=== PATIENT | female | born 1955 | race Caucasian/White ===

== ENCOUNTER 2020-07-26 06:17 | Emergency (ER) | payer OTHER ==
[~2020-07-26] VITALS: Ht 172.7 cm; Wt 68.2 kg
[~2020-07-26 06:17] MED LIST: CLON-527 PO; PANT40TA39 PO; PER5325T PO; VAL5T PO; ZOF4T PO; [UNRECOGNIZED DRUG - CODE] PO
[2020-07-26 06:19] VITALS: BP_DIAS 84
[2020-07-26] MEDS ORDERED: LORazepam 0.5 MG tablet PO PRN (06:45)
--- NOTE | 2020-07-26 07:21 | NUR ---
ANUM [phone] WILL BE HER [facility] HOME
--- NOTE | 2020-07-26 07:46 | NUR ---
ANUM IS A FRIEND NOT HER [phone]
[2020-07-26 08:03] LABS: BASOPHILS % (AUTO) 0.5 % (0-1); EOSINOPHILS # (AUTO) 0.1 X10'3 (0-0.9); EOSINOPHILS % (AUTO) 1.8 % (0-6); HEMATOCRIT 40.9 % (35.0-45.0); HEMOGLOBIN 13.9 g/dl (12.0-16.0); LYMPHOCYTES # (AUTO) 2.1 X10'3 (1.1-4.8); LYMPHOCYTES % (AUTO) 35.9 % (21-51); MEAN CORPUSCULAR HEMOGLOBIN 29.9 PG (27.0-31.0); MEAN CORPUSCULAR HGB CONC 33.9 g/dL (33.0-36.5); MEAN CORPUSCULAR VOLUME 88.2 FL (78-98); MEAN PLATELET VOLUME 8.2 FL (7.4-10.4); MONOCYTES # (AUTO) 0.3 X10'3 (0-0.9); MONOCYTES % (AUTO) 5.9 % (2-12); NEUTROPHILS # (AUTO) 3.2 X10'3 (1.8-7.7); NEUTROPHILS % (AUTO) 55.9 % (42-75); PLATELET COUNT 140 X10'3 (140-440); RED BLOOD COUNT 4.64 X10'6 (4.20-5.60); RED CELL DISTRIBUTION WIDTH 14.1 % (11.5-14.5); WHITE BLOOD COUNT 5.7 X10'3 (4.5-11.0)
[2020-07-26 08:18] LABS: ALANINE AMINOTRANSFERASE 24 U/L (12-78); ALBUMIN 3.9 G/DL (3.4-5.0); ALBUMIN/GLOBULIN RATIO 1.2 (1.1-1.5); ALKALINE PHOSPHATASE 75 IU/L (46-116); ANION GAP 9 (8-16); ASPARTATE AMINO TRANSFERASE 16 U/L (10-37); BILIRUBIN,TOTAL 1.3 MG/DL (0.1-1.0); BLOOD UREA NITROGEN 26 MG/DL (7-18); BUN/CREATININE RATIO 42.6 (6.6-38.0); CHLORIDE 108 MMOL/L (99-107); CREATININE 0.61 MG/DL (0.40-0.90); GLUCOSE 95 MG/DL (70-104); POTASSIUM 3.7 MMOL/L (3.5-5.1); SODIUM 144 MMOL/L (135-145); TOTAL CARBON DIOXIDE 26.9 MMOL/L (24-32); TOTAL PROTEIN 7.1 G/DL (6.4-8.2); eGFR > 90 ML/MIN
[2020-07-26 08:44] LABS: CLARITY,URINE CLEAR (Clear); COLOR,URINE STRAW (Yellow); GLUCOSE, URINE NEGATIVE (Neg); KETONES,URINE NEGATIVE (Neg); LEUKOCYTE ESTERASE ,URINE NEGATIVE (Neg); NITRITES, URINE NEGATIVE (Neg); OCCULT BLOOD,URINE NEGATIVE (Neg); PROTEIN,URINE NEGATIVE (Neg); UROBILINOGEN,URINE 0.2 E.U/dL (0.2-1.0)
[2020-07-26 08:45] LABS: UA COLLECTION TYPE CLN CATCH MIDSTREAM
[2020-07-26 10:30] VITALS: BP_SYST 72
== END 2020-07-26 11:06 | disposition home or self-care (01) ==
LOC: ER 06:17
DX: J06.9 Acute upper respiratory infection, unspecified (principal); R50.9 Fever, unspecified; G24.3 Spasmodic torticollis; R11.0 Nausea; Z20.828 Contact with and (suspected) exposure to other viral communicable diseases; G89.29 Other chronic pain; F41.9 Anxiety disorder, unspecified; Z88.6 Allergy status to analgesic agent; Z88.8 Allergy status to other drugs, medicaments and biological substances; Z79.82 Long term (current) use of aspirin; Z79.899 Other long term (current) drug therapy
CPT/HCPCS: 36415; 71045; 80053; 81003; 85025; 87081; 87635; 87880; 99284

== ENCOUNTER 2025-06-01 04:54 | Emergency (ER) | payer BC, MEDICAID ==
[~2025-06-01] VITALS: Ht 172.7 cm; Wt 70.0 kg
[2025-06-01 04:54] VITALS: BP 142/83; O2SAT 100
[~2025-06-01 04:54] MED LIST changes: +ASPI-1071 PO; +ATOR40TA PO; +BRIM5DRO21 EACHEYE; -CLON-527 PO; +CLON0.252 PO; -PANT40TA39 PO; +PANT40TA54 PO; -PER5325T PO; -VAL5T PO; -[UNRECOGNIZED DRUG - CODE] PO
[2025-06-01 05:10] VITALS: RESP 12
--- NOTE | 2025-06-01 05:16 | Physician Documentation ---
History of Present Illness ~ Chief Complaint: Wound Stated Complaint: LEFT WRIST INFECTION Time Seen by MD: 05:15 Primary Medical Doctor: NO PMD, [facility] ZARATE [facility] Mode of Arrival: POV HPI Patient presents to the emergency room for evaluation of infection to her left wrist. She was admitted here recently and this is with the IV site was. She did see her primary care two days ago who prescribed her two different antibiotics one for which she has started yesterday in his taken two doses in additional one if that antibiotic fails. Patient is using hydrogen peroxide and Neosporin that has well as a Band-Aid in addition to the antibiotic. No fevers Tetanus within 5 years?: No Medication Reconciliation Allergies: Coded Allergies: acetaminophen (Verified Adverse Reaction, Intermediate, 09/16/11) hydrocodone bit (Verified Adverse Reaction, Intermediate, 09/16/11) Scheduled Aspirin (Ecotrin*), 1 TAB PO DAILY Atorvastatin Calcium* (Lipitor*), 1 TAB PO HS Brimonidine Tartrate/Timolol (Brimonidine-Timolol 0.2%-0.5%), 1 DROP EACHEYE BID, (Reported) Clonazepam (Clonazepam), 1 TAB PO Q6H, (Reported) Ondansetron ODT* (Zofran ODT*), 8 MG PO DAILY PRN, (Reported) Pantoprazole Sodium (Pantoprazole Sodium), 1 TAB PO DAILY Past Medical History Past Medical History: Chronic Pain, Chronic Back Pain, Anxiety Past Surgical History: no surgical history Patient History: FH: heart disease FATHER Alcohol Use: None Drug Use: none Lives with: Family Lives In: Home Occupation: disabled Review of Systems ROS All review of systems negative except as per HPI Physical Exam Vital Signs: Temperature: 97.8, Heart Rate: 70, Respiratory Rate: 12, BP: 142/83, Pulse Oximetry: 100, Weight: 70.000 Oxygen Flow Rate: 0 Physical Exam General: Patient is awake, alert, oriented x4 in no acute distress and well appearing.~ Head: Normocephalic and atraumatic. Eyes: Conjunctival normal. EOMI. PERRL. ENT: Mucous membranes moist. Neck: Supple, trachea is midline. Chest: Clear to auscultation bilaterally without rales, rhonchi, or wheezes. There is no accessory muscle use or retractions. Cardiac: RRR without murmurs, gallops, or rubs. Abd: Soft, nondistended, nontender, with normoactive bowel sounds. No guarding, rebound, or rigidity. Extremities: Cellulitis noted to patient's radial aspect of her wrist measuring 2 cm x 2 cm Progress Results/Orders Results/Orders Vital Signs 06/01/25 06/01/25 04:54 05:10 Temp 97.8 Pulse 70 Resp 18 12 B/P (MAP) 142/83 Pulse Ox 100 O2 Flow Rate 0 Medical Decision Making Findings Patient presents to the emergency room with infection to her left wrist as per HPI. Patient's vital signs are stable and physical exam is reassuring he had not feel emergent labs are necessary. I do not feel patient has failed her initial antibiotic and I have instructed her to start the 2nd antibiotic that she has not in her possession should things worsen. A things continue to worsen or fevers needs to come back to the emergency room Departure Disposition: 01 HOME / SELF CARE / HOMELESS Impression: Primary Impression: Wound cellulitis Condition: Stable Discharge Instructions: Cellulitis, Adult, [id number] Referrals: NO PRIMARY CARE PROVIDER (PCP) Signature Scribe Signature: No scribe Attestation: The note accurately reflects work and decisions made by me.Dimas Campos MD 06/01/25 05:24 DIMAS CAMPOS MD Jun 01, 2025 05:16
[2025-06-01] MEDS ORDERED: bacitracin 15gm ointment TP ONE (05:25)
[2025-06-01 05:45] VITALS: PULSE 88; TEMP 97.8
== END 2025-06-01 05:47 | disposition home or self-care (01) ==
LOC: ER 04:54
DX: L03.114 Cellulitis of left upper limb (principal); F41.9 Anxiety disorder, unspecified; G89.29 Other chronic pain; Z88.8 Allergy status to other drugs, medicaments and biological substances; Z79.82 Long term (current) use of aspirin; Z79.899 Other long term (current) drug therapy
CPT/HCPCS: 99282; A6258; 99281